=== PATIENT | female | born 1960 | race Caucasian/White ===

== ENCOUNTER 2019-06-15 18:40 | Emergency (ER) | payer OTHER ==
[2019-06-15 18:55] VITALS: BP 126/88; PULSE 60; TEMP 98.2; BMI 19.9
[2019-06-15] MEDS ORDERED: AMOX TR/POT CLAV 875MG/125MG TABLETS (FP) PO ONE (19:50)
[2019-06-15] MEDS ORDERED: AMOX TR/POT CLAV 875MG/125MG TABLETS (FP) ONE (19:51)
--- NOTE | 2019-06-15 19:51 | PDOC ---
Documentation entered by January Kingston SCRIBE, acting as scribe for Jonathan Floyd MD. Jonathan Floyd MD: This documentation has been prepared by the florenceibThee sandoval Lincy, SCRIBE, under my direction and personally reviewed by me in its entirety. I confirm that the documentation accurately reflects all work , treatment, procedures, and medical decision making performed by me. History of Present Illness - General Chief Complaint: Bite Stated Complaint: DOG BITE TO LEFT HAND Time Seen by Provider: 06/15/19 19:07 History Source: Patient Exam Limitations: No Limitations - History of Present Illness Initial Comments: 06/15/19 19:21 The patient is a 58-year-old female who presents to the emergency department s/ p a dog bite to the left hand. The patient reports she recently got a new puppy , and she was feeding the puppy and her other dog when they both started fighting. The patient states she put her hand between them to get them to stop when she was bitten on her hand. Denies any numbness or tingling. PAST MEDICAL HISTORY: no significant history PAST SURGICAL HISTORY: no significant history FAMILY HISTORY: no pertinent history SOCIAL HISTORY: Pt lives with family and is employed. MEDICATIONS: reviewed ALLERGIES: As per nursing notes Review of system: General: No fevers or chills, no weakness, no weight loss HEENT: No change in vision. No sore throat,. No ear pain CardioVascular: No chest pain or shortness of breath Respiratory: No cough, or wheezing. Gastrointestinal: no nausea, vomiting, diarrhea or constipation, No rectal bleeding Genitourinary: No dysuria, hematuria, or frequency Musculoskeletal: No joint or muscle pain or swelling Neurologic: No headache, vertigo, dizziness or loss of consciousness Psychiatric: nor depression Skin: +wound to the left hand. No rashes or easy bruising Endocrine: no increased thirst or abnormal weight change Allergic: no skin or latex allergy All other systems reviewed and normal Physical exam: GENERAL: The patient is awake, alert, and fully oriented, in no acute distress. HEAD: Normal with no signs of trauma. EYES: Pupils equal, round and reactive to light, extraocular movements intact, sclera anicteric, conjunctiva clear. EXTREMITIES: Normal range of motion, no edema. NEUROLOGICAL: Normal speech, normal gait. PSYCH: +3cm V-shaped laceration to the dorsum of the hand, with some irregularity. Neurovascullary distally intact. Normal mood, normal affect. SKIN: Warm, Dry, normal turgor, no rashes or lesions noted. 06/15/19 19:46 Assessment and plan: This is a 58-year-old female who was trying to separate 2 of her dogs that were fighting and she got bit on the dorsum of her hand. Because it was a relatively large flap type laceration the decision was made to put a few stitches in it to loosely approximate the edges. Procedure note laceration repair Laceration was anesthetized with 1% lidocaine no epinephrine Laceration was irrigated with about 150 cc using pressure Zerowet and saline Laceration was closed loosely with 3 sutures of 4-0 Ethilon Bacitracin and sterile dressing was applied Patient tolerated well Patient started on Augmentin to prevent infection and discharged. 06/15/19 19:51 Past History - Past Medical History Allergies/Adverse Reactions: Allergies Allergy/AdvReac Type Severity Reaction Status Date / Time No Known Allergies Allergy Verified 06/15/19 18:40 Home Medications: Ambulatory Orders Ascorbic Acid [Vitamin C] 500 mg PO DAILY 06/15/19 Cholecalciferol (Vitamin D3) [Vitamin D3] 1,000 unit PO DAILY 06/15/19 Cyanocobalamin (Vitamin B-12) [Vitamin B12] 2,500 mcg PO DAILY 06/15/19 Iron 18 mg PO DAILY 06/15/19 COPD: No Other medical history: pt denies - Psycho Social/Smoking Cessation Hx Smoking History: Never smoked Have you smoked in the past 12 months: No Information on smoking cessation initiated: No Hx Alcohol Use: (occasional) *Physical Exam - Vital Signs Last Vital Signs Temp Pulse Resp BP Pulse Ox 98.2 F 60 18 126/88 99 06/15/19 18:40 06/15/19 18:40 06/15/19 18:40 06/15/19 18:40 06/15/19 18:40 Discharge - Discharge Information Problems reviewed: Yes Clinical Impression/Diagnosis: Dog bite of left hand Qualifiers: Encounter type: initial encounter Qualified Code(s): S61.452A - Open bite of left hand, initial encounter Condition: Stable Disposition: HOME - Admission No - Follow up/Referral Referrals: Moo Camp MD [Primary Care Provider] - - Patient Discharge Instructions Patient Printed Discharge Instructions: How to Care for a Domestic Animal Bite , Laceration Repair, DI for Animal Bites Additional Instructions: Clean the area with some peroxide once a day reapply bacitracin and a Band-Aid as needed until the laceration has scabbed in. Suture removal in 8 to 9 days. Take Augmentin 1 tablet twice a day for 7 days to prevent infection. Purchase a probiotic intake with the Augmentin or alternately eat 6 to 8 ounces of yogurt twice a day when you take the antibiotic. Return to the emergency department immediately with ANY new, persistent or worsening symptoms. Continue any medications as previously prescribed by your physician. You should follow up with your primary doctor as soon as possible regarding today's emergency department visit. . Please make sure your doctor reviews the results of your emergency evaluation. Thank you for coming to the Emergency Department today for your care. It was a pleasure to see you today. Please note that your evaluation is INCOMPLETE until you follow-up with your doctor. - Post Discharge Activity
== END 2019-06-15 19:59 | disposition home or self-care (01) ==
LOC: FER 18:40
PROC: 0HQGXZZ Repair Left Hand Skin, External Approach (ICD-10-PCS; principal; 2019-06-15)
DX: S61.452A Open bite of left hand, initial encounter (principal); W54.0XXA Bitten by dog, initial encounter; Y93.89 Activity, other specified; Y92.9 Unspecified place or not applicable
CPT/HCPCS: 99283-25